=== PATIENT | male | born 1995 | race Caucasian/White ===

== ENCOUNTER → 2017-05-19 | Outpatient (CLI) | payer OTHER ==
[2015-03-01 16:39] VITALS: BP 148/87
== END ==
LOC: LAB 10:02
PROVIDERS: ATTEND Psychiatry & Neurology Psychiatry
DX: Z79.899 Other long term (current) drug therapy (principal)
CPT/HCPCS: 36415; 80048; 80178; 84443

== ENCOUNTER 2019-02-01 17:02 | Emergency (ER) | payer MEDICARE, OTHER ==
--- NOTE | 2019-02-01 17:29 | ED Physician Documentation ---
Headache - HISTORIAN Historian: patient - HPI Stated Complaint: Headache Chief Complaint: Headache Additional Information: Patient is a 23 year old male who c/o "halo" headache. He states that he fell in his yard one month ago and hit his head on a rock and lost consciousness. He did not seek medical treatment at that time. He states that he is also having short term memory loss. He also has a history of schizophrenia. He thinks that he may have "brain swelling". Explained that assessment was negative- but because of symptoms we will do a CT of head. Onset: other (1 month ago) Timing: gradual, intermittent episodes New Gradual Onset: No Exposure To: recent head injury (1 month ago) Severity: mild Quality: tightness ("halo") Associated Symptoms: denies: problems with vision, sensitivity to light, nausea, vomiting, neck pain, stiffness, speech problems, weakness, light-headedness Preceding Symptoms: denies: visual disturbance (wears glasses) Exacerbated By: denies: light, noise, movement - ROS NEURO/PSYCH: denies: confusion EYES/ENT: denies: sore throat, difficulty swallowing CVS/RESP: none GI/: denies: abdominal pain, incontinence MS/SKIN/LYMPH: denies: muscle aches, back pain all systems neg except as marked: Yes - PAST HX Medical History: other (schizophrenia) Surgical History: no surgical history Immunizations: UTD Allergies/Adverse Reactions: Allergies Allergy/AdvReac Type Severity Reaction Status Date / Time Tetanus Vaccines and Toxoid AdvReac Muscle Pain Verified 02/01/19 17:13 - SOCIAL HX Smoking History: greater than 1 pack/day Alcohol Use: rarely Drug Use: none - Family HX Family History: none - VITAL SIGNS Vital Signs: Vital Signs Temp Pulse Resp BP Pulse Ox 98.1 F 98 H 18 166/85 97 02/01/19 17:02 02/01/19 17:02 02/01/19 17:02 02/01/19 17:02 02/01/19 17:02 ED Results Lab/Radiology - Radiology Radiology Impressions: HEAD CT History: FALL X1 MONTH WITH LOC, CONTINUED HEADACHES, PT STATES HE HIT THE RT PARIETAL AREA WHEN HE FELL Comparison exam: None available Technique: Noncontrast head CT protocol. Findings: Ventricles and sulci are appropriate for patient age. Cerebrocerebellar parenchyma demonstrates normal attenuation. No evidence for parenchymal hemorrhage. No evidence for mass or mass effect. No midline shift. No extra axial fluid collections. Partial visualization of the paranasal sinuses, mastoid air cells, orbits, skull and scalp without gross irregularity. Impression: No acute parenchymal process. No hemorrhage. Electronically signed on Feb 01, 2019 5:53:25 PM CDT by: Gregg Monson - Orders Orders: ED Orders Category Date Time Status CT BRAIN W/O CONTRAST Stat Exams 02/01/19 Taken Headache Physical Exam - EXAM General Appearance: no acute distress, alert EENT: no facial swelling, eyes nml inspection, PERRL, nml ENT, pharynx nml Neck: normal inspection, supple Respiratory: no resp distress, breath sounds normal CVS: reg. rate & rhythm, heart sounds nml Abdomen: non-tender Skin: color nml, no rash Extremitites: non-tender, normal range of motion - NEURO/PSYCH Higher Functions: alert, oriented x3, nml speech, mood/affect nml Cranial: nml as tested, no evidence of acute CVA Cerebellar: nml as tested Sensorimotor: motor nml, sensation nml Discharge Clincal Impression: Headache Referrals: Leonel Garcia MD [STAFF PHYSICIAN] - 2 Days Additional Instructions: Head CT was negative Increase fluid intake (no caffeine) May take Ibuprofen or Excedrin as needed Follow up with PCP next week as needed Condition: Good Disposition: 01 HOME, SELF-CARE Decision to Admit: NO Decision Time: 19:14
--- NOTE | 2019-02-01 17:55 | Diagnostic Imaging Report ---
KACIE AUSTIN [facility] [address] [facility] [address] [place], [place]. [address] Report Submission Date: Feb 01, 2019 5:53:25 PM CDT Patient Study Name: FRANCI ACKERMAN Date: Feb 01, 2019 5:29:28 PM CDT Modality Type: CT\SR Gender: M Description: CT BRAIN W/O CONTRAST : 94 Institution: [facility] Physician: KACIE AUSTIN Examination: CT head without contrast History: FALL X1 MONTH WITH LOC, CONTINUED HEADACHES, PT STATES HE HIT THE RT PARIETAL AREA WHEN HE FELL Comparison exam: None available Technique: Noncontrast head CT protocol. Findings: Ventricles and sulci are appropriate for patient age. Cerebrocerebellar parenchyma demonstrates normal attenuation. No evidence for parenchymal hemorrhage. No evidence for mass or mass effect. No midline shift. No extra axial fluid collections. Partial visualization of the paranasal sinuses, mastoid air cells, orbits, skull and scalp without gross irregularity. Impression: No acute parenchymal process. No hemorrhage. Electronically signed on Feb 01, 2019 5:53:25 PM CDT by: Gregg BENDER
[2019-02-01 18:00] VITALS: BP 158/78
== END 2019-02-01 17:58 | disposition home or self-care (01) ==
LOC: ED 17:02
DX: R51 Headache (principal)
CPT/HCPCS: 70450; 99282; 99284

== ENCOUNTER 2019-02-05 10:50 | Emergency (ER) | payer MEDICARE, OTHER ==
--- NOTE | 2019-02-05 10:58 | ED Physician Documentation ---
Upper Extremity Injury - HISTORIAN Historian: patient - HPI Stated Complaint: right elbow pain Chief Complaint: Upper Extremity Problem Onset: just prior to arrival Where: work Severity: mild Duration: persistent since Context: other (he had his arm in the drawer and he fell and twisted the arm. He has had elbow and forearm pain since. He has not tried any OTC meds or ice. He has no loss of sensation ) Associated Symptoms: tingling (5th finger ) Further Comments: yes (He states prior to arrival he had his arm in a drawer and he fell and twisted at the elbow. He states he feels pain in elbow and forearm. He has tingling in his finger (5th) finger . He has not tried any Ice or OTC meds.) - ROS CONST: no problems - PAST HX Past History: none Allergies/Adverse Reactions: Allergies Allergy/AdvReac Type Severity Reaction Status Date / Time Tetanus Vaccines and Toxoid AdvReac Muscle Pain Verified 02/05/19 11:07 - SOCIAL HX Smoking History: non-smoker Alcohol Use: none Drug Use: none - FAMILY HX Family History: none - VITAL SIGNS Vital Signs: Vital Signs Temp Pulse Resp BP Pulse Ox 97.1 F L 66 16 147/84 98 02/05/19 10:55 02/05/19 11:46 02/05/19 11:46 02/05/19 11:46 02/05/19 11:46 - REVIEWED ASSESSMENTS Nursing Assessment Reviewed: Yes Vitals Reviewed: Yes ED Results Lab/Radiology - Radiology Radiology Impressions: Examination: Plain film right forearm History: FELL DOWN WHILE RIGHT ARM STUCK IN DRAWER. RT FOREARM AND ELBOW PAIN. Comparison exams: None available Findings: 2 views of the right radius and ulna demonstrates normal cortical margins. No evidence for fracture line. No soft tissue abnormality. Impression: No acute osseous abnormality. Electronically signed on Feb 05, 2019 11:30:22 AM CDT by: Gergg Monson Examination: Plain film right elbow History: FELL DOWN WHILE RIGHT ARM STUCK IN DRAWER. RT FOREARM AND ELBOW PAIN. Comparison exams: None provided Findings: 3 views of the right elbow demonstrate normal cortical margins. No fracture. No dislocation. Radial head is within normal limits. No joint effusion Impression: No acute osseous abnormality. Electronically signed on Feb 05, 2019 11:31:07 AM CDT by: Gregg Monson - Orders Orders: ED Orders Category Date Time Status ELBOW 3 VIEWS [RAD] Stat Exams 02/05/19 Completed FOREARM XR [FOREARM 2 VIEWS] [RAD] Stat Exams 02/05/19 Completed Ibuprofen [Advil] Med 02/05/19 11:39 Discontinued 800 mg PO NOW ONE Upper Extremity Injury Physic - Physical Exam General Appearance: no acute distress, alert Hand: normal inspection Wrist: normal inspection Elbow/Forearm: normal inspection, no evidence of injury, normal ROM, bone tenderness, soft tissue tenderness. No: limited ROM, swelling Shoulder: normal inspection, normal ROM Neuro/Vascular/Tendon: no vascular compromise Skin: warm,dry Head/ENT: nml inspection Resp/CVS: chest non-tender, breath sounds nml, heart sounds nml, no resp. distress Abdomen: non-tender Discharge Clincal Impression: Right forearm injury Qualifiers: Encounter type: initial encounter Qualified Code(s): S59.911A - Unspecified injury of right forearm, initial encounter Referrals: Primary Doctor,No [Primary Care Provider] - 2 Days Comments: 1. Tylenol or Ibuprofen as directed for pain as needed 2. Ice 3. Follow up with PCP In 2 days 4. Return to ER for any increasing concerns Condition: Stable Disposition: 01 HOME, SELF-CARE Decision to Admit: NO Date of Decison to Admit: 02/05/19 Decision Time: 11:39
--- NOTE | 2019-02-05 11:32 | Diagnostic Imaging Report ---
SANTA CARRILLO [facility] [address] [facility] [address] [place], [place]. [address] Report Submission Date: Feb 05, 2019 11:31:07 AM CDT Patient Study Name: FRANCI ACKERMAN Date: Feb 05, 2019 11:02:57 AM CDT Modality Type: DX Gender: M Description: ELBOW 3 VIEWS : 94 Institution: [facility] Physician: SANTA CARRILLO Examination: Plain film right elbow History: FELL DOWN WHILE RIGHT ARM STUCK IN DRAWER. RT FOREARM AND ELBOW PAIN. Comparison exams: None provided Findings: 3 views of the right elbow demonstrate normal cortical margins. No fracture. No dislocation. Radial head is within normal limits. No joint effusion Impression: No acute osseous abnormality. Electronically signed on Feb 05, 2019 11:31:07 AM CDT by: Gregg BENDER
--- NOTE | 2019-02-05 11:32 | Diagnostic Imaging Report ---
[facility] [address] [facility] [address] [place], [place]. [address] Report Submission Date: Feb 05, 2019 11:30:22 AM CDT Patient Study Name: FRANCI ACKERMAN Date: Feb 05, 2019 11:02:57 AM CDT Modality Type: DX Gender: M Description: FOREARM 2 VIEWS : 94 Institution: [facility] Physician: SANTA CARRILLO Examination: Plain film right forearm History: FELL DOWN WHILE RIGHT ARM STUCK IN DRAWER. RT FOREARM AND ELBOW PAIN. Comparison exams: None available Findings: 2 views of the right radius and ulna demonstrates normal cortical margins. No evidence for fracture line. No soft tissue abnormality. Impression: No acute osseous abnormality. Electronically signed on Feb 05, 2019 11:30:22 AM CDT by: Gregg BENDER
[2019-02-05] MEDS: IBUPROFEN 400 MG TABLET PO ONE (11:42)
[2019-02-05 11:52] VITALS: BP 147/84
== END 2019-02-05 11:43 | disposition home or self-care (01) ==
LOC: ED 10:50
DX: S59.911A Unspecified injury of right forearm, initial encounter (principal); W18.09XA Striking against other object with subsequent fall, initial encounter; Y93.89 Activity, other specified; Y92.89 Other specified places as the place of occurrence of the external cause; Y99.0 Civilian activity done for income or pay
CPT/HCPCS: 73080; 73090; 99282; 99284